=== PATIENT | male | born 1990 | race Caucasian/White ===

== ENCOUNTER 2019-10-17 09:12 | Emergency (ER) | payer SELFPAY ==
[2019-10-17 09:41] VITALS: TEMP 97.4; BMI 29.8
--- NOTE | 2019-10-17 10:41 | PDOC ---
History of Present Illness - General Chief Complaint: Injury Stated Complaint: LEG PAIN Time Seen by Provider: 10/17/19 10:01 History Source: Patient - History of Present Illness Occurred: reports: yesterday Severity: Yes: severe Lower Extremity Pain Location: right: leg Past History - Past Medical History Allergies/Adverse Reactions: Allergies Allergy/AdvReac Type Severity Reaction Status Date / Time No Known Allergies Allergy Verified 10/17/19 09:37 Home Medications: Ambulatory Orders No Home Medications 0 dose .ROUTE UTDICT 06/29/13 COPD: No - Surgical History Abdominal Surgery: Yes (RT ING HERNIA) Appendectomy: Yes - Psycho Social/Smoking Cessation Hx Smoking Status: No Smoking History: Never smoked Have you smoked in the past 12 months: No Number of Cigarettes Smoked Daily: 0 Hx Alcohol Use: Yes Drug/Substance Use Hx: No Review of Systems - Review of Systems Constitutional: No: Chills, Fever, Malaise, Weakness *Physical Exam - Vital Signs Last Vital Signs Temp Pulse Resp BP Pulse Ox 97.4 F L 85 18 127/70 100 10/17/19 09:37 10/17/19 09:37 10/17/19 09:37 10/17/19 09:37 10/17/19 09:37 - Physical Exam General Appearance: Yes: Appropriately Dressed. No: Apparent Distress HEENT: positive: Normal Voice Neck: positive: Supple Respiratory/Chest: negative: Respiratory Distress Extremity: positive: Other (significant varicosities to RLE w/ brisk dark bleed to lateral R leg, no erythema or swelling) Integumentary: positive: Dry, Warm Neurologic: positive: Fully Oriented, Alert Medical Decision Making - Medical Decision Making 10/17/19 10:36 29-year-old male history of varicose veins, mostly to RLE, s/p multiple vein stripping in the past by Dr. Drake, here in ED for bleeding varicose vein that started last night after he scratched his R leg per patient. Has since wrapped site w/ stockings but states bleeding continues. No weakness, dizziness , fever or chills. Of note patient has had multiple visits in ED for same see exam Bleeding varicosity Surgicel w/ compressive dressing placed in facility Will c/w vascular to arrange close f/u 10/17/19 12:33 After over [address] Drake of vascular, no callback from MD. Patient requesting discharge and states he will follow-up with [facility] this week. On reassessment bleeding since controlled with compression dressing. Skin warm to touch with good pulses. Patient discharged with strict return precautions, otherwise to follow-up with vascular Discharge - Discharge Information Problems reviewed: Yes Clinical Impression/Diagnosis: Bleeding from varicose vein Condition: Good Disposition: HOME - Follow up/Referral Referrals: Benjamin Drake MD [Staff Physician] - - Patient Discharge Instructions Patient Printed Discharge Instructions: Varicose Veins Additional Instructions: Keep dressing in place and call Dr. Drake in the a.m. for follow-up this week - Post Discharge Activity
[2019-10-17 12:28] VITALS: BP 126/74; PULSE 88
== END 2019-10-17 12:38 | disposition home or self-care (01) ==
LOC: JERFT 09:12
DX: I83.891 Varicose veins of right lower extremity with other complications (principal); R58 Hemorrhage, not elsewhere classified
CPT/HCPCS: 99282-25